=== PATIENT | female | born 1980 | race Caucasian/White ===

== ENCOUNTER 2016-11-16 13:39 | Emergency (ER) | payer MEDICAID ==
[~2016-11-16] VITALS: Ht 170.2 cm; Wt 103.7 kg
[2016-11-16 13:41] VITALS: TEMP 98.2; Ht 170.2 cm; Wt 103.7 kg
--- OUTSIDE RECORDS SUMMARY | 2016-11-16 13:44 | XMS REPORT | Continuity of Care Document ---
Author Author [facility] Organization [facility] Address Unknown Phone Unavailable Allergies Medications Problems Date Dx Coded Attending Type Code Diagnosis Diagnosed By 02/04/2013 Young Hairston MD 278.00 OBESITY, NOS 02/04/2013 Young Hairston MD 305.1 TOBACCO USE DISORDER 02/04/2013 Young Hairston MD 722.0 CERVICAL DISC DISPLACMNT 02/04/2013 Young Hairston MD V85.37 BODY MASS INDEX 37.0-37.9, ADULT Procedures Code Description Performed By Performed On 77.79 EXCISE BONE FOR GFT NEC Young Hairston MD 02/04/2013 80.51 EXCISION INTERVERT DISC Young Hairston MD 02/04/2013 81.02 OTH CERVICAL FUSION OF ANTERIOR COLUMN, ANTERIOR T Young Hairston MD 02/04/2013 81.62 FUSION/REFUS OF 2-3 VERTEBRAE Young Hairston MD 02/04/2013 84.51 INSERTION OF INTERBODY SPINAL FUSION DEVICE Young Hairston MD 02/04/2013 Results Test Result Range TEST, SERUM - 02/04/13 08:12 TEST, SERUM NEGATIVE NEGATIVE CBC - 02/05/13 04:42 MEAN CELL HGB 29.3 pg 27.0-33.0 MEAN CELL HGB CONCENTRATION 33.6 g/dL 32.0-37.0 MEAN CELL VOLUME 87.4 fl 80.0-100.0 RED BLOOD CELL 4.60 m/cumm 4.00-6.00 RED CELL DISTRIBUTION WIDTH 12.3 % 11.0- 15.6 WHITE BLOOD CELL 16.7 k/cumm 5.0-10.0 HEMOGLOBIN 13.5 gm/dL 12.0-16.0 HEMATOCRIT 40.2 % 37.0-47.0 PLATELET COUNT 314 k/cumm 150-400 METABOLIC PANEL, BASIC - 02/05/13 04:42 POTASSIUM 4.2 mmol/L 3.5-5.3 EST GFR (MDRD) > 60 mL/min > 59 ANION GAP 9 mmol/L 5-15 EST CrCl (CG) > 60 mL/min > 59 GLUCOSE 131 mg/dL 70-99 CALCIUM 9.0 mg/dL 8.5-10.1 BLOOD UREA NITROGEN 14 mg/dL 7-20 CREATININE 0.8 mg/dL 0.6-1.0 SODIUM 141 mmol/L 135-148 CHLORIDE 108 mmol/L 98-110 CARBON DIOXIDE 24 mmol/L 21-32 Encounters ACCT No. Visit Date/Time Discharge Status Pt. Type Provider Facility Loc./Unit Complaint [id number] 02/04/2013 06:54:00 2012 14:17:00 DIS Inpatient Yovanny SALMON, [facility] W.8TN [id number] 09/19/2014 11:49:00 Document Registration
--- NOTE | 2016-11-16 13:51 | NUR ---
PROVIDER N NOLD GOLF BALL TRIMMER AT BEDSIDE
--- NOTE | 2016-11-16 13:56 | ERPDOC ---
Departure Disposition Decision Date: Nov 16, 2016 Disposition Decision Time: 14:13 (VANNESA VALENZUELA APRN) Disposition: 01 DISCHARGED HOME, SELF-CARE Impression Impression (VANNESA VALENZUELA APRN) Impression: Primary Impression: Right foot pain Severity: Moderate (VANNESA VALENZUELA APRN) Condition: Stable Seen By: Mid-level only (VANNESA VALENZUELA APRN) Patient Instructions: Foot Sprain (ED) Problems/Meds/Labs Reviewed?: Yes Medications reviewed and manag: Yes (VANNESA VALENZUELA APRN) Additional Instructions: I do want you to ice and elevate the foot. I did not see a fracture today on xray. I do want you to follow up with your primary care provider for follow up. You may need to have it re-xrayed in 14 days or an MRI if the pain persists. Follow up care ordered?: Yes Mental Status: Alert, Oriented (VANNESA VALENZUELA APRN) Scripts Tramadol HCl (Tramadol HCl) 50 Mg Tablet 50 MG PO Q6HR, #10 TAB 0 Refills Take 1 tablet, by mouth, every 6 hours. Prov: VANNESA VALENZUELA APRN 11/16/16 HPI General Chief Complaint: Lower Extremity Pain Stated Complaint: R ANKLE PAIN Time Seen by Provider: 13:44 Source: patient Exam Limitations: no limitations (VANNESA VALENZUELA APRN) Time Seen by Provider: 13:44 (BALTAZAR PETERSON MD) HPI Foot/Ankle Initial Comments Her foot has been hurting her over the last week on the area of the arch. This is the right foot. She does not recall any specific injury to the foot or any trauma. No history of injury or fracture. This morning she was going to the mail box and it was raining so she was jogging a little bit. [place] a pop in the region of the arch where she has been having the pain and has had increased difficulty with ambulation and weight bearing since then. She did take 5 Ibuprofen and 2 tramadol prior to coming to [facility] but is still having some pain. Occurred At: home Onset: Rapid Duration: 1 week Severity: moderate Location: right: foot Method of Injury: unknown Associated Symptoms: pain with extension, pain with flexion, pain with standing , swelling (mild), DENIES: bruising, numbness, pallor, red streaks, redness, weakness (NOLD,VANNESA N CUSTODY ASSISTANT) Allergies: Coded Allergies: No Known Allergies (Unverified , 11/16/16) Past History Patient Surgical History Rotator cuff surgery Cervical Spine fusion C Section x2 (NOLD,VANNESA N CUSTODY ASSISTANT) Past Medical History Pt denies signifigant PMH (NOLD,VANNESA N CUSTODY ASSISTANT) Surgical History Reproductive/: Joint: other (Cervical spine fusion), shoulder (rotator cuff surgery) (NOLD, VANNESA N CUSTODY ASSISTANT) Family History Family History: Negative (NOLD,VANNESA N CUSTODY ASSISTANT) Social History Smoking Status: Never smoker Substance Use Type: does not use Alcohol Intake: none (NOLD,VANNESA N CUSTODY ASSISTANT) Review of Systems Musculoskeletal General: pain (arch of the right foot), tenderness (arch of the right foot), DENIES: joint pain, joint swelling (NOLD,VANNESA N CUSTODY ASSISTANT) Integumentary Skin: DENIES: color change, lesion, rash (NOLD,VANNESA N CUSTODY ASSISTANT) Neurological General: DENIES: headache, numbness, tingling, weakness (NOLD,VANNESA N CUSTODY ASSISTANT) Exam General General Nourishment: well nourished, well developed, appears stated age, no acute distress, adult General Body Habitus: well groomed Vital Signs: RN Vital Signs have been reviewed: Yes, Temperature: 98.2, Source : Oral, Heart Rate: 62, Respiratory Rate: 18, BP: 146/70, Pulse Oximetry: 99 Height (Feet): 5 Height (Inches): 7.00 (NOLD,VANNESA N CUSTODY ASSISTANT) Fastrak Foot/Ankle Foot/Ankle : Leg: Right Leg: NOT FOUND: atrophy, contusion, deformity, discoloration, edema, numbness, swelling, tender, weakness Ankle: tender mid foot (and over the arch), NOT FOUND: achilles tendon insertion, anterior drawer sign, decreased ROM, deformity, ecchymosis, foot drop , numbness, swelling, tender lat. foot, tender lat. malleolus, tender med. malleolus, weakness Foot: other (TTP along the arch of the right foot, more posterior than anterior aspect), NOT FOUND: atrophy, deformity, discoloration, numbness, swelling, tender 1st MTP joint, tender plantar fascia Toes: cap refill <2 sec ea toe, NOT FOUND: decreased ROM, deformity, ecchymosis, erythema, nail avulsion, subungual hematoma Dorsalis Pedis Pulse: 2+ (VANNESA VALENZUELA APRN) Neurologic RN Documented GCS Eye Opening: Verbal: Motor: Total: (VANNESA VALENZUELA APRN) Differential Diagnoses Considering: Contusion, Dislocation, Fracture, Plantar Fasciitis, Sprain, Strain (VANNESA VALENZUELA APRN) Progress Results/Orders Orders Procedure Category Date Status Time Foot Right 3 Views RAD 11/16/16 Taken Premade Splint EDM 11/16/16 Transmitted 14:20 (BALTAZAR PETERSON MD) Progress Progress Xray today was negative. Will have her follow up with her PCP if this is not improving. May wear and deborah wrap or arch support over the next few days to help with the pain. Ice and elevated. Ibuprofen as needed. (VANNESA VALENZUELA APRN) Xray Xray : Reason for Exam: right foot pain Xray: Foot R Interpretation: Normal (VANNESA VALENZUELA APRN) VANNESA VALENZUELA APRN Nov 16, 2016 13:56 BALTAZAR PETERSON MD Nov 17, 2016 06:26
--- OUTSIDE RECORDS SUMMARY | 2016-11-16 13:57 | XMS REPORT | Continuity of Care Document ---
Author Author [facility] Organization [facility] Address Unknown Phone Unavailable Allergies Medications Problems [...] Status Pt. Type Provider Facility Loc./Unit Complaint [id number] 02/04/2013 06:54:00 2012 14:17:00 DIS Inpatient Yovanny SALMON, [facility] W.8TN [id number] 09/19/2014 11:49:00 Document Registration
[2016-11-16] MEDS ORDERED: IBUP-1724 PO (14:09)
[2016-11-16] MEDS ORDERED: NO ROUTINE MEDS (14:09)
[2016-11-16] MEDS ORDERED: TRAM50TA4 PO ×2 (14:09→14:21)
[2016-11-16 14:22] VITALS: BP 115/62; PULSE 63; RESP 18; O2SAT 98
--- NOTE | 2016-11-17 09:36 | DI ---
Indication: ITS.REASON: RIGHT FOOT PAIN PROCEDURE: FOOT RIGHT 3 VIEWS: Encounter: Initial Comparison: None Findings: There is no acute fracture, dislocation or malalignment identified. Impression: No acute osseous abnormality. .
== END 2016-11-16 14:22 | disposition home or self-care (01) ==
LOC: ED 13:39
DX: M79.671 Pain in right foot (principal)

== ENCOUNTER → 2016-11-20 | Outpatient (CLI) | payer MEDICAID ==
[~2016-11-20] MED LIST: IBUP-1724 PO; NO ROUTINE MEDS; TRAM50TA4 PO
[2016-11-20 16:44] LABS: ALBUMIN 4.4 G/DL (3.5-5.0); ALBUMIN/GLOBULIN RATIO 1.7 RATIO (1.1-2.2); ALKALINE PHOSPHATASE 62 U/L (38-126); ALT (SGPT) 57 U/L (9-52); ANION GAP 16 MEQ/L (5-15); AST (SGOT) 43 U/L (14-36); BUN/CREATININE RATIO 21 RATIO (6-26); CALCIUM 9.8 MG/DL (8.4-10.2); CHLORIDE 109 MEQ/L (98-107); CO2 - CARBON DIOXIDE 23 MEQ/L (22-30); CREATININE 0.8 MG/DL (0.7-1.2); GLOMERULAR FILTRATION RATE 80; GLUCOSE 110 MG/DL (65-110); POTASSIUM 3.4 MEQ/L (3.6-5); SODIUM 148 MEQ/L (134-144)
== END ==
LOC: LAB 15:55
PROVIDERS: ATTEND Family Medicine
DX: B18.2 Chronic viral hepatitis C (principal)
CPT/HCPCS: 36415; 80053